=== PATIENT | female | born 1980 | race Caucasian/White ===

== ENCOUNTER 2023-01-15 14:05 | Emergency (ER) | payer OTHER, MEDICAID, SELFPAY ==
[2023-01-15] VITALS (9 sets, daily range): BP systolic 92–161; BP diastolic 62–93; PULSE 73–80; RESP 12–18; TEMP 36.6; O2SAT 99–100
--- NOTE | ~2023-01-15 | XR_ITS ---
EXAMINATION: XR chest 2V DATE: 01/15/2023 15:51 INDICATION: Chest pain and nausea TECHNIQUE: AP and lateral views of the chest are obtained. COMPARISON: None available FINDINGS: The lungs are free of acute opacities. No pleural effusion or pneumothorax. The cardiomedia stinal silhouette is normal. There is moderate thoracic spondylosis. IMPRESSION: 1. No acute cardiopulmonary abnormality. Reviewed, dictated and finalized at location B.
--- NOTE | 2023-01-15 15:21 | ECG_ITS ---
Measurements Intervals Holiday Rate: 77 P: 45 NM: 152 QRS: 25 QRSD: 103 T: 20 QT: 443 QTc: 503 Interpretive Statements SINUS RHYTHM MINIMAL ST DEPRESSION [0.025+ mV ST DEPRESSION] PROLONGED QT INTERVAL NO PREVIOUS ECG AVAILABLE FOR COMPARISON Electronically Signed On 01-16-2023 15:01:34 CDT by Amanuel Henderson M.D.
--- NOTE | 2023-01-15 15:51 | PC.NURSE ---
Patient was in xray and states she began having chest pain, nausea and feeling like she is going to pass out. Patient brought back to triage for repeat vital signs. patient BP is soft, but is the same as it was during triage.
[2023-01-15 16:01] LABS: Basophils Absolute Auto 0.1 K/mm3 (0.0-0.1); Basophils Percent Auto 0.6 % (0.2-1.2); Eosinophils Absolute Auto 0.1 K/mm3 (0-0.3); Eosinophils Percent Auto 0.7 % (0-4.4); Hematocrit 28.6 % (37.0-47.0); Hemoglobin 9.2 g/dL (12.0-15.0); Immature Granulocyte Absolute 0.08 K/mm3 (0.00-0.031); Immature Granulocyte Percent A 0.5 % (0-0.5); Lymphocytes Absolute Auto 1.27 K/mm3 (0.9-3.2); Lymphocytes Percent Auto 7.2 % (18.3-44.2); Mean Corpuscular HGB Conc 32.2 g/dl (32-36); Mean Corpuscular Hemoglobin 29.8 pg (26-34); Mean Corpuscular Volume 92.6 fl (80-100); Mean Platelet Volume 8.8 fl (7.4-10.4); Monocytes Absolute Auto 0.7 K/mm3 (0.1-0.6); Monocytes Percent Auto 4.2 % (2.6-8.5); Neutrophils Absolute Auto 15.4 K/mm3 (1.3-6.7); Neutrophils Percent Auto 86.8 % (45.5-73.1); Platelet Count Result 278 k/mm3 (150-375); Red Blood Count 3.09 M/mm3 (4.2-5.4); Red Cell Distribution Width 14.2 % (11.5-14.5); White Blood Count 17.7 K/mm3 (4.5-10.0)
[2023-01-15 16:07] LABS: INR 1.3; Prothrombin Time 15.5 Seconds (11.1-14.7)
[2023-01-15 16:08] LABS: Alanine Aminotransferase 29 U/L (6-35); Albumin Level 3.7 g/dL (3.5-5.1); Alkaline Phosphatase 134 U/L (38-126); Anion Gap 10 mmol/L (8-16); Aspartate Amino Transferase 34 U/L (14-36); Bilirubin,Total 0.5 mg/dL (0.2-1.3); Blood Urea Nitrogen 54 mg/dL (7-17); Calcium 8.8 mg/dL (8.4-10.2); Carbon Dioxide 24 mmol/L (22-30); Chloride 99 mmol/L (98-107); Estimated CRCL calculation 26 ml/min; Estimated Glomerular Filt Rate 19; Glucose 146 mg/dL (65-110); Lipase 21 U/L (23-300); Potassium 3.5 mmol/L (3.4-5.0); Sodium 133 mmol/L (137-145)
[2023-01-15 16:20] LABS: Troponin I < 0.012 ng/mL (0.000-0.034)
[2023-01-15] MEDS: Please add drug allergy info to patient profile. 1 EACH XX (17:38)
--- NOTE | 2023-01-15 17:41 | PC.NURSE ---
Received a call from the facility that she lives in. She lives at [facility] in [place], [place]. 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 Her [employer] office is on [address]. She had an escort to her appointment but they got split up and the escort was told pt was going to [facility]. Pt arrives here and no escort. Pt has a control officer manager that has to be notified of where pt is currently.
[2023-01-15] MEDS: ASPIRIN 81 MG CHEWABLE TABLET 324 MG (17:50)
--- NOTE | 2023-01-15 17:53 | ED.SYNCOPE ---
HPI - Syncope General Chief Complaint: Syncope Stated Complaint: syncopal episode on transport bus Time Seen by Provider: 01/15/23 17:16 Source: patient History of Present Illness HPI narrative: 42 years old white female came to the emergency room by ambulance because of syncope. History of diabetes, adrenal insufficiency, CHF, orthostatic hypotension, coronary stents, pulmonary embolism, on Eliquis, anemia, blood transfusion once a month, last blood transfusion December 20, 2022, cardiac vest removed 1 week ago, suprapubic catheter, bedridden/wheelchair bound, patient been at [facility] facility for 1 year, was in her way to her seismograph supervisor Dr. Enciso in the transportation car, then had syncope and blacked out for unknown duration, no trauma. Patient was scheduled to see her seismograph supervisor today to reevaluate the chest vest.. Currently patient complaining of chest pain which has been after the syncope. She denies any fever, chills, nausea, vomiting, shortness of breath. Patient usually go to [facility], never been to our hospital before. Patient reports last syncope secondary to orthostatic hypotension was March 2020 Related Data Home Medications Medication Instructions Recorded Confirmed apixaban 2.5 mg tablet (Eliquis) mg 01/15/23 atorvastatin 80 mg tablet mg 01/15/23 calcium acetate 667 mg tablet mg PO 01/15/23 cefdinir 300 mg capsule mg 01/15/23 clopidogrel 75 mg tablet mg 01/15/23 ergocalciferol (vitamin D2) 1,250 01/15/23 mcg (50,000 unit) capsule fludrocortisone 0.1 mg tablet mg 01/15/23 folic acid 1 mg tablet 01/15/23 furosemide 20 mg tablet mg 01/15/23 hydrocodone 5 mg-acetaminophen 325 tablet 01/15/23 mg tablet metoclopramide HCl 5 mg tablet mg 01/15/23 metoprolol succinate 25 mg mg PO 01/15/23 tablet,extended release 24 hr mirtazapine 7.5 mg tablet mg 01/15/23 pantoprazole 40 mg tablet,delayed mg PO 01/15/23 release spironolactone 25 mg tablet mg 01/15/23 Allergies Allergy/AdvReac Type Severity Reaction Status Date / Time No Known Allergies Allergy Verified 01/15/23 17:33 Review of Systems Review of Systems: All systems reviewed & are unremarkable except as noted in HPI and below Exam Narrative: General appearance: Well-developed, well-nourished Skin: Normal color Head: Normocephalic, nontraumatic Eyes: Clear conjunctiva ENT: Oropharynx normal, ears normal, nose normal Neck: Supple, nontender Chest and respiratory: Airway patent, no respiratory distress, no accessory muscle use Heart: Regular rate/rhythm Abdomen: Soft, nontender, no organomegaly, quiet bowel sounds, suprapubic catheter in place Vascular: Normal peripheral pulses, normal capillary refill. Musculoskeletal: Normal range of motion, nontender back Neurologic: Alert and oriented ?3, ANALYSIS LEAD is normal as tested, no gross motor deficit Course Consultations Consultation #1: DR GALVAN, covering Dr. Enciso accepted patient transfer to [facility], but no bed available at this time patient will be on the waiting list Date: 01/15/23 Time: 19:02 Consultation #2: DR Treviño, hospitalist at [facility], accepted patient transfer Date: 01/15/23 Time: 21:03 Vital Signs Vital signs: Vital Signs Temperature 36.6 C 01/15/23 15:19 Pulse Rate 74 01/15/23 15:19 Respiratory Rate 18 01/15/23 15:19 Blood Pressure 96/66 L 01/15/23 15:19 Pulse Oximetry 100 01/15/23 15:19 Oxygen Delivery Room Air 01/15/23 15:19 Temperature 36.6 C 01/15/23 15:19 Pulse Rate 75 01/15/23 20:54 Respiratory Rate 17 01/15/23 20:54 Blood Pressure 161/77 H 01/15/23 20:54 Pulse Oximetry 99
[2023-01-15 18:46] LABS: Troponin I < 0.012 ng/mL (0.000-0.034)
--- NOTE | 2023-01-15 19:09 | PC.NURSE ---
[facility] calling to notify they do not have any beds available for the pt at this time, will continue to keep on a waiting list.
[2023-01-15] MEDS: HYDROCORTISONE SODIUM SUCCINATE 100 MG/2 ML VIAL IV PUSH (19:18)
[2023-01-15] MEDS: SODIUM CHLORIDE 0.9% IV 1,000 ML 999 ML IV CONT (19:38)
[2023-01-15 20:48] LABS: Appearance Urine Turbid (Clear); Bacteria Urine 4+ /hpf; Bilirubin Urine Negative (Negative); Blood Urine 1+ (Negative); Color Urine Yellow (Yellow); Glucose Urine UA Negative (Negative); Ketones Urine Negative (Negative); Leukocyte Esterase Ur 3+ LEU/UL (Negative); Need Manual Microscopic Reviewed; Nitrate Urine Negative (Negative); Protein Urine 3+ mg/dL (Negative); RBC Urine 0-2 /hpf (0-2); Specific Grav Ur 1.012 (1.001-1.035); Squamous Epithelial Cell Urine Few /hpf (Few); Urobilinogen Urine 0.2 mg/dL (<2.0); WBC Urine >100 /hpf; pH Urine 6.5 (5.0-9.0)
[2023-01-15 20:50] LABS: Add Urine Microscopic? YES
--- NOTE | 2023-01-15 20:53 | PC.NURSE ---
Attempted to call report to [facility]. No answer at this time
--- NOTE | 2023-01-15 21:34 | PC.NURSE ---
Gave report to MENA Macario Patient okay to transfer at this time
[2023-01-15 22:06] LABS: Troponin I < 0.012 ng/mL (0.000-0.034)
--- NOTE | 2023-01-16 01:13 | PC.NURSE ---
[facility] here.
[2023-01-16 01:15] VITALS: BP 135/71; PULSE 82; RESP 17; O2SAT 96
== END 2023-01-16 01:24 | disposition short-term general hospital (02) ==
PROVIDERS: Emergency Provider Emergency Medicine
DX: I95.1 Orthostatic hypotension (principal); R07.9 Chest pain, unspecified; N28.9 Disorder of kidney and ureter, unspecified; D64.9 Anemia, unspecified; D72.829 Elevated white blood cell count, unspecified; Z93.59 Other cystostomy status; Z74.01 Bed confinement status; I50.9 Heart failure, unspecified; E27.40 Unspecified adrenocortical insufficiency; E11.9 Type 2 diabetes mellitus without complications; Z95.5 Presence of coronary angioplasty implant and graft; Z86.711 Personal history of pulmonary embolism; Z79.01 Long term (current) use of anticoagulants; R94.31 Abnormal electrocardiogram [ECG] [EKG]
CPT/HCPCS: 36415; 71046; 80053; 81001; 83690; 84484; 85025; 85610; 85730; 87077; 87086; 87186; 93005; 96361; 96374; 99285; A9270; J1720; J7030